=== PATIENT | male | born 1980 | race Caucasian/White ===

== ENCOUNTER 2018-01-12 07:29 | Emergency (ER) | payer OTHER ==
[2018-01-12 07:39] VITALS: BP 135/75
--- NOTE | 2018-01-12 08:47 | UC ---
Bibiana Barr Gabriel, scribed for [facility] on 01/12/18 at 0832 . Throat Pain/Nasal Yoseph HPI - HPI Summary HPI Summary: This patient is a 37 year old M presenting to [facility] with a chief complaint of cough and hoarse voice that began 6 days ago. Pt was recently seen at his PCP for sinus pressure and a hoarse voice, he was dx with sinusitis and given a 10 day course of Keflex. He finished the course 6 days and since then the congestion has moved into his chest. The patient rates the pain 0/10 in severity. Patient reports swollen glands and mildly sore throat .Patient denies n/v/d, fever, CP, wheezing, and SOB. Hx seasonal allergies. [id number]. note: vital signs stable, BP 135/75, patient is on antihypertensive medication. Nurse note: Sinusitis, keflex x 10 days, now has congestion and a cough. - History of Current Complaint Chief Complaint: UCGeneralIllness Stated Complaint: COUGH,CONGESTED Hx Obtained From: Patient Onset/Duration: Still Present Severity: Mild Pain Intensity: 0 Pain Scale Used: 0-10 Numeric Associated Signs & Symptoms: Positive: Negative - fever, CP, SOB,, Other - swollen glands, sore throat, productive cough, chest congestion - Allergies/Home Medications Allergies/Adverse Reactions: Allergies Allergy/AdvReac Type Severity Reaction Status Date / Time No Known Allergies Allergy Verified 01/12/18 07:39 Home Medications: Home Medications Acetaminop/Codeine 30 MG TAB* [Tylenol/Codeine 30 MG TAB*] 1 tab PO Q4H PRN 10/27 [History Confirmed 01/12/18] Lisinopril TAB* [Prinivil TAB 10 MG*] 10 mg PO DAILY 01/12/18 [History Confirmed 01/12/18] PMH/Surg Hx/FS Hx/Imm Hx Cardiovascular History: Hypertension Respiratory History: Asthma - as a child Neurological History: Other - CHRONIC BACK PAIN Other Neurological History: CHRONIC BACK PAIN - Surgical History Surgical History: Yes Surgery Procedure, Year, and Place: vasectomy - Family History Known Family History: Positive: Cardiac Disease, Hypertension, Diabetes - Social History Occupation: Employed Full-time Lives: With Family Alcohol Use: None Substance Use Type: None Smoking Status (MU): Former Smoker Have You Smoked in the Last Year: No When Did the Patient Quit Smoking/Using Tobacco: 6 yrs ago Review of Systems ENT: Sore Throat - mildly, Other - hoarse voice and swollen glands Respiratory: Cough All Other Systems Reviewed And Are Negative: Yes - Comments Additional Review of Systems Comments: Positive: swollen glands, cough, hoarse voice, and sore throat. Negative: n/v/d , fever, chest pain, wheezing, and SOB. Physical Exam - Summary Physical Exam Summary: Appearance: The patient is well-appearing, is in no pain distress, and is well- nourished. Eyes: Conjunctiva are clear. ENT: The hearing is grossly normal, the pharynx is normal, and the TMs are normal. There is no muffled or hoarse voice. NO EXUDATE Neck: MILD ANTERIOR CERVICAL LYMPHADENOPATHY ON THE LEFT Respiratory: The chest is nontender. LUNGS HAVE A RARE RHONCHI ON THE LEFT, THERE IS AN EXTENDED EXPIRATORY PHASE BILATERALLY, INTERMITTENT COUGH WITH DEEP INSPIRATION Cardiovascular: Heart is regular rate and rhythm. There is no murmur. Abdomen: The abdomen is soft and nontender. There is no organomegaly. Bowel sounds: present Musculoskeletal: Strength is intact. The patient moves all extremities. Neurological: The patient is alert. Psychological: The patient displays age appropriate behavior Skin: Negative for rashes. Triage Information Reviewed: Yes Vital Signs: Initial Vital Signs Temp 97.8 F 01/12/18 07:35 Pulse 90 01/12/18 07:35 Resp 18 01/12/18 07:35 BP 135/75 01/12/18 07:35 Pulse Ox 99 01/12/18 07:35 Vital Signs Reviewed: Yes Throat Pain/Nasal Course/Dx - Course Assessment/Plan: Pt has prior dx of HTN. Healthy 37 y/o male with a residual cough after 10 day course of Keflex. I explained at length that he has bronchitis with bronchospasm and he will use albuterol, spacer, and tessalon. He understands to follow up for any fever or CP. Medications have been included in the original chart and reviewed. - Differential Dx/Diagnosis Differential Diagnosis/HQI/PQRI: Other - bronchitis vs PNA Provider Diagnoses: Bronchitis with bronchospasm Discharge - Sign-Out/Discharge Documenting (check all that apply): Discharge/Admit/Transfer - Discharge Plan Condition: Stable Disposition: HOME Prescriptions: Albuterol HFA INHALER* [Ventolin HFA Inhaler*] 1 - 2 puff INH Q4H #1 mdi MDD 8 a day Benzonatate CAP* [Tessalon CAP*] 100 mg PO TID #20 cap MDD 3 Dexamethasone TAB* [Decadron TAB*] 4 mg PO DAILY #4 tab MDD 2 tabs Inhaler, Assist Devices [Aerochamber Mv] 1 mis XX Q6HR #1 mis Patient Education Materials: Acute Bronchitis (ED), Bronchospasm (ED) Referrals: Walter Beck MD [Primary Care Provider] - Additional Instructions: For discomfort: Ibuprofen 400-600mg PLUS acetaminophen 500mg - 1000mg every 8 hours. Maximum is 3 doses a day. If this dosage is required for more than 5 days , you should re-check with your doctor. PLEASE SEEK CARE AT THE EMERGENCY DEPARTMENT IF SYMPTOMS WORSEN OR IF NEW SYMPTOMS DEVELOP. FOLLOW UP WITH YOUR PRIMARY CARE PHYSICIAN WE DISCUSSED: 1. You have a viral bronchitis. 2. Your lungs are also hyper-irritated. 3. Begin using inhaler and spacer: 2 puffs, four times a day for 2-5 days. 4. Tessalon caps for cough. Dexamethasone for 2 days for lung bronchospasm. 5. You should be improving in the next few days. Recheck or call any time for worsening cough, chest pain or temperature. - Billing Disposition and Condition Condition: STABLE Disposition: HOME The documentation as recorded by the Bibiana reese Gabriel accurately reflects the service I personally performed and the decisions made by me, Catalino Lowery MD.
== END 2018-01-12 08:55 | disposition home or self-care (01) ==
LOC: UCEAST 07:29
DX: J20.9 Acute bronchitis, unspecified (principal); J02.9 Acute pharyngitis, unspecified; R59.9 Enlarged lymph nodes, unspecified; I10 Essential (primary) hypertension; J45.909 Unspecified asthma, uncomplicated; Z87.891 Personal history of nicotine dependence
CPT/HCPCS: 99201; G0463

== ENCOUNTER 2018-08-09 10:42 | Emergency (ER) | payer OTHER ==
[2018-08-09 10:57] VITALS: BP 153/104
--- NOTE | 2018-08-09 11:02 | UC ---
Dental HPI - HPI Summary HPI Summary: 38-year-old male comes in to clinic today with a chief complaint of dental pain. Started a little more than a month ago when his filling a left upper molar came out. He reports having an appointment with his dentist on August. His primary care physician has prescribed him Augmentin and [place]. He' s also been using Orajel. The Orajel and the [place] to help with the pain but then the pain returns. Chewing makes the pain worse. No fevers or chills. - History of Current Complaint Stated Complaint: TOOTHACHE Time Seen by Provider: 08/09/18 10:46 - Allergies/Home Medications Allergies/Adverse Reactions: Allergies Allergy/AdvReac Type Severity Reaction Status Date / Time No Known Allergies Allergy Verified 08/09/18 10:46 Home Medications: Home Medications Acetaminophen [Tylenol] 325 mg PO Q8HR PRN 08/09/18 [History Confirmed 08/09/18] Amoxicillin/Clavulanate TAB* [Augmentin TAB 875*] 875 mg PO BID 08/09/18 [ History Confirmed 08/09/18] Hydrocodone/Acetaminophen [[place] 5-325 Tablet] 1 each PO Q8HR PRN 08/09/18 [ History Confirmed 08/09/18] Ibuprofen TAB* [Motrin TAB* 600 MG] 800 mg PO Q6H PRN 08/09/18 [History Confirmed 08/09/18] Montelukast Sodium TAB* [Singulair TAB*] 10 mg PO DAILY 08/09/18 [History Confirmed 08/09/18] PMH/Surg Hx/FS Hx/Imm Hx Previously Healthy: Yes Cardiovascular History: Hypertension Respiratory History: Asthma - Surgical History Surgical History: Yes Surgery Procedure, Year, and Place: vasectomy - Family History Known Family History: Positive: Cardiac Disease, Hypertension, Diabetes - Social History Alcohol Use: None Substance Use Type: None Smoking Status (MU): Former Smoker Have You Smoked in the Last Year: No When Did the Patient Quit Smoking/Using Tobacco: 6 yrs ago Review of Systems All Other Systems Reviewed And Are Negative: Yes Constitutional: Positive: Negative Skin: Positive: Negative Eyes: Positive: Negative ENT: Positive: Dental Pain Respiratory: Positive: Negative Cardiovascular: Positive: Negative Gastrointestinal: Positive: Negative Motor: Positive: Negative Neurovascular: Positive: Negative Musculoskeletal: Positive: Negative Neurological: Positive: Negative Psychological: Positive: Negative Is Patient Immunocompromised?: No Physical Exam Triage Information Reviewed: Yes Appearance: Well-Appearing, Well-Nourished, Pain Distress - MILD Vital Signs Reviewed: Yes Eye Exam: Normal Eyes: Positive: Conjunctiva Clear ENT: Positive: Pharynx normal, TMs normal. Negative: Nasal drainage Dental: Positive: Other: - Left upper molar has a large cavity and the area is tender to palpation. Neck exam: Normal Neck: Positive: Supple Respiratory: Positive: Lungs clear, Normal breath sounds, No respiratory distress Cardiovascular: Positive: RRR Musculoskeletal Exam: Normal Musculoskeletal: Positive: Strength Intact, ROM Intact Neurological Exam: Normal Neurological: Positive: Muscle Tone Normal Psychological Exam: Normal Psychological: Positive: Age Appropriate Behavior Skin Exam: Normal Dental Complaint Course/Dx - Course Course Of Treatment: Plan is to prescribe Percocet and also add clindamycin and then follow up with the dentist as scheduled on August 13, 2018. - Differential Dx/Diagnosis Provider Diagnosis: Toothache Discharge - Sign-Out/Discharge Documenting (check all that apply): Patient Departure All imaging exams completed and their final reports reviewed: No Studies - Discharge Plan Condition: Stable Disposition: HOME Prescriptions: Clindamycin Cap(NF) [Clindamycin Cap 300 mg Cap(NF)] 300 mg PO Q6H #40 cap oxyCODONE/Acetamin 5/325 MG* [Percocet 5/325 TAB*] 1 tab PO Q4H PRN #30 tab MDD 6 PRN Reason: Pain Patient Education Materials: Toothache (ED) Referrals: Walter Beck MD [Primary Care Provider] - Additional Instructions: FOLLOW UP WITH YOUR DENTIST ON 08/13/18 SCHEDULED. GET RECHECKED FOR ANY WORSENING OF YOUR CONDITION OR QUESTIONS OR CONCERNS. - Billing Disposition and Condition Condition: STABLE Disposition: Home
== END 2018-08-09 11:10 | disposition home or self-care (01) ==
LOC: UCEAST 10:42
DX: K08.89 Other specified disorders of teeth and supporting structures (principal); I10 Essential (primary) hypertension; J45.909 Unspecified asthma, uncomplicated; Z87.891 Personal history of nicotine dependence
CPT/HCPCS: 99212; G0463